=== PATIENT | female | born 1990 | race American Indian/Alaskan Native ===

== ENCOUNTER 2019-01-07 16:50 | Emergency (ER) | payer BC, OTHER ==
[2019-01-07 16:50] VITALS: BMI 32.8
[2019-01-07 17:05] VITALS: O2SAT 98
[2019-01-07 17:59] LABS: SQUAMOUS EPITHIAL < 1 /hpf (0-5); URINE BILIRUBIN NEGATIVE (NEGATIVE); URINE BLOOD NEGATIVE (NEGATIVE); URINE CLARITY Hazy (Clear); URINE COLOR Yellow (YELLOW); URINE GLUCOSE (UA) NORMAL (Normal); URINE LEUKOCYTE ESTERASE NEG Leu/uL (Negative); URINE PROTEIN NEGATIVE (NEGATIVE); URINE UROBILINOGEN NORMAL mg/dL (0.2-1.0)
[2019-01-07 18:08] LABS: BASO # 0.1 K/uL (0.0-0.2); BASO % 0.6 % (0.0-2.0); EOS # 0.1 K/uL (0.0-0.7); HEMOGLOBIN 13.1 g/dL (11.0-16.0); LYMPH # 2.9 K/uL (1.0-4.3); LYMPH % 29.3 % (20.0-40.0); MEAN CELL VOLUME 85.3 fL (81.0-99.0); MEAN CORPUSCULAR HEMOGLOBIN 28.2 pg (27.0-31.0); MEAN CORPUSCULAR HGB CONC 33.1 g/dL (33.0-37.0); MEAN PLATELET VOLUME 9.3 fL (7.2-11.7); MONO # 0.6 K/uL (0.0-0.8); MONO % 6.4 % (0.0-10.0); NEUT # 6.2 K/uL (1.8-7.0); NEUT % 62.7 % (50.0-75.0); NRBC % 0.1 % (0.0-2.0); RBC 4.65 Mil/uL (3.80-5.20); RED CELL DISTRIBUTION WIDTH 14.2 % (11.5-14.5); WHITE BLOOD COUNT 9.9 K/uL (4.8-10.8)
[2019-01-07 18:08] LABS: HCG,QUALITATIVE URINE POSITIVE (NEGATIVE)
--- NOTE | 2019-01-07 18:44 | C.PDOC ---
History Of Present Illness 28 y/o A7 female presents to the ED with complaints of mild lower abdominal pain for the past 3 days. States she had a positive home test this morning. LMP was approximately 12/09/18. Otherwise patient denies any nausea, vomiting, diarrhea, constipation, hematuria, dysuria, vaginal bleeding or discharge. <Jory BLACKMONPeter - Last Filed: 01/07/19 18:47> History Per: Patient History/Exam Limitations: no limitations Onset/Duration Of Symptoms: Days (x3) Current Symptoms Are (Timing): Still Present Severity: Mild <DeontePeter avelar DO - Last Filed: 01/07/19 18:47> <Chastity Luther - Last Filed: 01/07/19 20:39> Time Seen by Provider: 01/07/19 17:41 Chief Complaint (Nursing): Abdominal Pain Past Medical History Reviewed: Historical Data, Nursing Documentation, Vital Signs Vital Signs: Last Vital Signs Temp 98.5 F 01/07/19 17:02 Pulse 70 01/07/19 17:02 Resp 16 01/07/19 17:02 BP 114/78 01/07/19 17:02 Pulse Ox 98 01/07/19 17:02 Surgical History: No Surg Hx Family History: States: Unknown Family Hx - Social History Hx Tobacco Use: No Hx Alcohol Use: Yes Hx Substance Use: No - Immunization History Hx Tetanus Toxoid Vaccination: Yes Hx Influenza Vaccination: Yes Hx Pneumococcal Vaccination: Yes <Deonterosio BLACKMONPeter - Last Filed: 01/07/19 18:47> Vital Signs: Last Vital Signs Temp 98.5 F 01/07/19 17:02 Pulse 70 01/07/19 17:02 Resp 16 01/07/19 17:02 BP 114/78 01/07/19 17:02 Pulse Ox 98 01/07/19 18:48 <Chastity Luther - Last Filed: 01/07/19 20:39> Review Of Systems Except As Marked, All Systems Reviewed And Found Negative. Constitutional: Negative for: Fever, Chills Cardiovascular: Negative for: Chest Pain Respiratory: Negative for: Shortness of Breath Gastrointestinal: Positive for: Abdominal Pain. Negative for: Nausea, Vomiting, Diarrhea Genitourinary: Negative for: Dysuria, Hematuria, Vaginal Discharge, Vaginal Bleeding Neurological: Negative for: Headache, Dizziness <Peter Corley DO Last Filed: 01/07/19 18:47> Physical Exam - Physical Exam Appears: Non-toxic, No Acute Distress Skin: Normal Color, Warm, Dry Head: Atraumatic, Normacephalic Eye(s): bilateral: Normal Inspection, PERRL, EOMI Oral Mucosa: Moist Neck: Normal ROM Chest: Symmetrical Cardiovascular: Rhythm Regular, No Murmur Respiratory: Normal Breath Sounds, No Accessory Muscle Use Gastrointestinal/Abdominal: Soft, No Tenderness, No Distention, No Guarding, No Rebound Back: No CVA Tenderness Extremity: Bilateral: Atraumatic, Normal Color And Temperature, Normal ROM Neurological/Psych: Oriented x3, Normal Speech Gait: Steady <Peter Corley DO Filed: 01/07/19 18:47> ED Course And Treatment - Laboratory Results Result Diagrams: 01/07/19 18:01 Lab Results: Urine Color Yellow (YELLOW) 01/07/19 17:25 Urine Clarity Hazy (Clear) 01/07/19 17:25 Urine pH 5.0 (5.0-8.0) 01/07/19 17:25 Ur Specific Waddy 1.026 (1.003-1.030) 01/07/19 17:25 Urine Protein Negative mg/dL (NEGATIVE) 01/07/19 17:25 Urine Glucose (UA) Normal mg/dL (Normal) 01/07/19 17:25 Urine Ketones Negative mg/dL (NEGATIVE) 01/07/19 17:25 Urine Blood Negative (NEGATIVE) 01/07/19 17:25 Urine Nitrate Negative (NEGATIVE) 01/07/19 17:25 Urine Bilirubin Negative (NEGATIVE) 01/07/19 17:25 Urine Urobilinogen Normal mg/dL (0.2-1.0) 01/07/19 17:25 Ur Leukocyte Esterase Neg Mia/uL (Negative) 01/07/19 17:25 Urine WBC (Auto) 2 /hpf (0-5) 01/07/19 17:25 Urine RBC (Auto) 1 /hpf (0-3) 01/07/19 17:25 Ur Squamous Epith Cells < 1 /hpf (0-5) 01/07/19 17:25 Urine HCG, Qual Positive (NEGATIVE) 01/07/19 17:25 Urine HCG, Qual Positive (NEGATIVE) 01/07/19 17:25 O2 Sat by Pulse Oximetry: 98 (RA) Pulse Ox Interpretation: Normal <Peter Corley DO - Last Filed: 01/07/19 18:47> - Laboratory Results Result Diagrams: 01/07/19 18:01 01/07/19 19:03 Lab Results: Total Bilirubin 0.3 mg/dL (0.2-1.3) 01/07/19 19:03 AST 22 U/L (14-36) 01/07/19 19:03 ALT 24 U/L (9-52) 01/07/19 19:03 Alkaline Phosphatase 70 U/L (38-126) 01/07/19 19:03 Total Protein 8.0 g/dL (6.3-8.3) 01/07/19 19:03 Albumin 4.4 g/dL (3.5-5.0) 01/07/19 19:03 Globulin 3.6 gm/dL (2.2-3.9) 01/07/19 19:03 Albumin/Globulin Ratio 1.2 (1.0-2.1) 01/07/19 19:03 Lipase 125 U/L (23-300) 01/07/19 19:03 Urine Color Yellow (YELLOW) 01/07/19 17:25 Urine Clarity Hazy (Clear) 01/07/19 17:25 Urine pH 5.0 (5.0-8.0) 01/07/19 17:25 Ur Specific Waddy 1.026 (1.003-1.030) 01/07/19 17:25 Urine Protein Negative mg/dL (NEGATIVE) 01/07/19 17:25 Urine Glucose (UA) Normal mg/dL (Normal) 01/07/19 17:25 Urine Ketones Negative mg/dL (NEGATIVE) 01/07/19 17:25 Urine Blood Negative (NEGATIVE) 01/07/19 17:25 Urine Nitrate Negative (NEGATIVE) 01/07/19 17:25 Urine Bilirubin Negative (NEGATIVE) 01/07/19 17:25 Urine Urobilinogen Normal mg/dL (0.2-1.0) 01/07/19 17:25 Ur Leukocyte Esterase Neg Mia/uL (Negative) 01/07/19 17:25 Urine WBC (Auto) 2 /hpf (0-5) 01/07/19 17:25 Urine RBC (Auto) 1 /hpf (0-3) 01/07/19 17:25 Ur Squamous Epith Cells < 1 /hpf (0-5) 01/07/19 17:25 Urine HCG, Qual Positive (NEGATIVE) 01/07/19 17:25 Beta HCG, Quant 132.79 mIU/ML 01/07/19 18:01 Urine HCG, Qual Positive (NEGATIVE) 01/07/19 17:25 Pulse Ox Interpretation: Normal Reevaluation Time: 20:37 Reassessment Condition: Improved <Chastity Luther - Last Filed: 01/07/19 20:39> Medical Decision Making Medical Decision Making: Initial Plan: - Blood work - UA, U-HCG - Transvaginal/Pelvic US pending Labs reviewed, Beta-HCG quant is 132.79 <Peter Corley DO - Last Filed: 01/07/19 18:47> Medical Decision Making: Upon provider reevaluation patient is feeling better, is medically stable, and requires no further treatment in the ED at this time. Patient will be discharged home with Rx for . Counseling was provided and all questions were answered regarding diagnosis and need for follow up with the referred clinic. There is a greement to discharge plan. Return if symptoms persist or worsen. <Chastity Luther - Last Filed: 01/07/19 20:39> Disposition <Peter Corley DO - Last Filed: 01/07/19 18:47> Counseled Patient/Family Regarding: Studies Performed, Diagnosis, Need For Followup - Disposition Disposition Time: 19:00 <Chastity Luther - Last Filed: 01/07/19 20:39> - Disposition Referrals: Eloisa Beck [Medical Doctor] - Disposition: HOME/ ROUTINE Condition: FAIR Instructions: Threatened Miscarriage (DC) Forms: Open[employer] (Norwegian) - Clinical Impression Clinical Impression: Threatened - Scribe Statement The provider has reviewed the documentation as recorded by the Mikala Veronica Provider Attestation: All medical record entries made by the Gaelibkendall were at my direction and personally dictated by me. I have reviewed the chart and agree that the record accurately reflects my personal performance of the history, physical exam, medical decision making, and the department course for this patient. I have also personally directed, reviewed, and agree with the discharge instructions and disposition. <Peter Corley DO - Last Filed: 01/07/19 18:47>
[2019-01-07 19:20] LABS: ALB/GLOB RATIO 1.2 (1.0-2.1); ALBUMIN 4.4 g/dL (3.5-5.0); ALT/SGPT 24 U/L (9-52); AST/SGOT 22 U/L (14-36); BLOOD UREA NITROGEN 11 mg/dL (7-17); CALCIUM 9.8 mg/dl (8.6-10.4); GFR NON-AFRICAN AMERICAN > 60; LIPASE 125 U/L (23-300)
[2019-01-07 21:09] VITALS: BP 125/83; PULSE 78; RESP 18; TEMP 98.4
--- NOTE | 2019-01-08 08:55 | US ---
Date of service: 01/07/2019 HISTORY: Lower abdominal pain COMPARISON: None available. TECHNIQUE: Transvaginal pelvic ultrasound was performed. FINDINGS: UTERUS: Measures 8.1 x 4.3 x 5.2 cm. Normal in size and appearance. No fibroid or other mass lesion seen. ENDOMETRIUM: Measures 10 mm in diameter. The central endometrial echo complex is normal in appearance. No evidence for intrauterine gestational sac. CERVIX: There is a 1.8 x 1.6 cm cyst with internal echoes in the posterior wall. RIGHT OVARY: Measures 3.1 x 1.4 x 2 point cm. No solid mass. Normal flow. LEFT OVARY: Measures 4.0 x 2.2 x 2.6 cm. No solid mass. Normal flow. There is a 2.1 x 1.8 x 1.9 cm corpus luteal cyst. FREE FLUID: There is moderate amount of free fluid in the pelvis. OTHER FINDINGS: None. IMPRESSION: No evidence of intrauterine gestation. Moderate amount of free fluid in the pelvis of uncertain etiology. 1.8 x 1.6 cm nabothian cyst with internal debris in the posterior wall of the cervix. A preliminary report was provided by [facility].
== END 2019-01-07 21:06 | disposition home or self-care (01) ==
LOC: C.ER 16:50
DX: O20.0 Threatened abortion (principal)